=== PATIENT | female | born 1990 | race Caucasian/White ===

== ENCOUNTER → 2016-08-10 | Outpatient (CLI) | payer OTHER | LOC: KOH-I 13:30 | DX: M84.474A Pathological fracture, right foot, initial encounter for fracture (principal); S92.351A Displaced fracture of fifth metatarsal bone, right foot, initial encounter for closed fracture | CPT/HCPCS: 73700 ==

== ENCOUNTER 2020-05-20 10:44 | Emergency (ER) | payer BC ==
[~2020-05-20 10:44] MED LIST: BENTYL 20MG TAB20 MG PO; COLACE 100MG C100 MG PO; CREON DR 36,001 EACH PO; IBUPROFEN600 MG PO; LORTAB 5-325 M1 EACH PO; NORCO 5-325 TA1 EACH PO; OMNICEF 300 MG300 MG PO; PHENERGAN 25 MG25 M1 PO; PRENATAL VITAM1 EAC5 PO; PYRIDIUM200 MG PO
[2020-05-20] MEDS ORDERED: ATIVAN1 MG PO (13:07)
== END 2020-05-20 13:38 | disposition home or self-care (01) ==
LOC: ER1 10:44
DX: F43.0 Acute stress reaction (principal); G47.00 Insomnia, unspecified; R06.02 Shortness of breath; J45.909 Unspecified asthma, uncomplicated; Z87.19 Personal history of other diseases of the digestive system; Z88.0 Allergy status to penicillin; Z88.5 Allergy status to narcotic agent; Z91.041 Radiographic dye allergy status
CPT/HCPCS: 70450; 73502; 96374; 96375; 96376; 99285; J1885; J2060

== ENCOUNTER → 2021-05-19 | Outpatient (CLI) | payer BC ==
[~2021-05-19] MED LIST changes: +ATIVAN1 MG PO; +CYCLOBENZAPRINE5 MG PO; +METHYLPREDNISOLO4 MG PO; +PROVENTIL HFA6.7 GM PO; +ROXICODONE5 MG PO
[2021-05-19 13:20] LABS: HEMOGLOBIN 14.7 gm/dl (12.3-15.3); RED BLOOD COUNT 5.03 M/UL (4.00-5.10); WHITE BLOOD COUNT 6.4 K/UL (4.5-11.0)
[2021-05-19 13:45] LABS: BUN/CREATININE RATIO 16 (0-10)
== END ==
LOC: OPSV2 12:23 → EDSTATUS 12:30 → OPSV2 12:30
PROVIDERS: Orthopaedic Surgery
DX: Z01.818 Encounter for other preprocedural examination (principal); M51.16 Intervertebral disc disorders with radiculopathy, lumbar region; I51.7 Cardiomegaly
CPT/HCPCS: 36415; 80048; 84703; 85027; 86850; 86900; 86901; 93005

== ENCOUNTER → 2021-05-20 | Day surgery (SDC) | payer BC | END | disposition home or self-care (01) | LOC: OR 05:31 | DX: M51.16 Intervertebral disc disorders with radiculopathy, lumbar region (principal); K21.9 Gastro-esophageal reflux disease without esophagitis; K58.9 Irritable bowel syndrome, unspecified; Z88.5 Allergy status to narcotic agent; M41.9 Scoliosis, unspecified; Z88.0 Allergy status to penicillin; Z91.041 Radiographic dye allergy status; Z20.822 Contact with and (suspected) exposure to COVID-19 | CPT/HCPCS: 72100; 76000; C1781; J0690; J1040; J1100; J1170; J2001; J2250; J2405; J2550; J2704; J3010; J3370; J7050; J7120 ==

== ENCOUNTER 2021-08-04 13:13 | Emergency (ER) | payer BC ==
[2021-08-04 15:35] LABS: HEMOGLOBIN 13.2 gm/dl (12.3-15.3); RED BLOOD COUNT 4.6 M/UL (4.00-5.10); WHITE BLOOD COUNT 5.3 K/UL (4.5-11.0)
[2021-08-04 16:21] LABS: BUN/CREATININE RATIO 25 (0-10)
[2021-08-04] MEDS ORDERED: OMNICEF 300 MG300 MG PO (18:33)
== END 2021-08-04 19:28 | disposition home or self-care (01) ==
LOC: ER1 13:13
PROVIDERS: Emergency Medicine
DX: N30.90 Cystitis, unspecified without hematuria (principal); Z88.0 Allergy status to penicillin
CPT/HCPCS: 72131; 80053; 81001; 83690; 84703; 85025; 85652; 86140; 96374; 96375; 99284; J0696; J1170; J1885; J2405; J7030

== ENCOUNTER 2021-08-05 11:02 | Inpatient (IN) | payer BC ==
[~2021-08-05] VITALS: Ht 167.6 cm; Wt 77.1 kg
[2021-08-05 12:42] LABS: HEMOGLOBIN 12.3 gm/dl (12.3-15.3); RED BLOOD COUNT 4.28 M/UL (4.00-5.10); WHITE BLOOD COUNT 2.6 K/UL (4.5-11.0)
[2021-08-05 13:12] LABS: BUN/CREATININE RATIO 17 (0-10)
[2021-08-06 03:35] LABS: RED BLOOD COUNT 4.28 M/UL (4.00-5.10)
[2021-08-06 04:34] LABS: BUN/CREATININE RATIO 12 (0-10)
[2021-08-07 03:14] LABS: HEMOGLOBIN 12.3 gm/dl (12.3-15.3); RED BLOOD COUNT 4.33 M/UL (4.00-5.10)
[2021-08-07 03:42] LABS: BUN/CREATININE RATIO 12 (0-10)
[2021-08-08 04:48] LABS: HEMOGLOBIN 10.8 gm/dl (12.3-15.3); WHITE BLOOD COUNT 5.8 K/UL (4.5-11.0)
[2021-08-08 04:53] LABS: RED BLOOD COUNT 3.76 M/UL (4.00-5.10)
[2021-08-08 05:45] LABS: BUN/CREATININE RATIO 13 (0-10)
[2021-08-09 04:33] LABS: HEMOGLOBIN 11.3 gm/dl (12.3-15.3); RED BLOOD COUNT 3.93 M/UL (4.00-5.10); WHITE BLOOD COUNT 5.4 K/UL (4.5-11.0)
[2021-08-09 04:47] LABS: BUN/CREATININE RATIO 8 (0-10)
[2021-08-10 04:14] LABS: HEMOGLOBIN 11.2 gm/dl (12.3-15.3); RED BLOOD COUNT 3.99 M/UL (4.00-5.10)
[2021-08-10 04:25] LABS: BUN/CREATININE RATIO 9 (0-10)
[2021-08-11 06:13] LABS: HEMOGLOBIN 11.1 gm/dl (12.3-15.3); RED BLOOD COUNT 3.96 M/UL (4.00-5.10); WHITE BLOOD COUNT 4.8 K/UL (4.5-11.0)
[2021-08-11 06:53] LABS: BUN/CREATININE RATIO 18 (0-10)
--- NOTE | 2021-08-11 12:16 | NUR ---
WHILE ADMINISTERING PATIENTS LOVENOX INJECTION PATIENT YELLED AT NURSE AND CURSED AT NURSE. I ASKED THE PATIENT IF THERE WAS ANYTHING ELSE I COULD DO FOR HER AND FOR HER TO LET ME KNOW IF SHE NEEDED ANYTHING. PATIENT VERBALIZED UNDERSTANDING.
[2021-08-12 04:47] LABS: BUN/CREATININE RATIO 16 (0-10); HEMOGLOBIN 10.1 gm/dl (12.3-15.3); RED BLOOD COUNT 3.65 M/UL (4.00-5.10); WHITE BLOOD COUNT 4.3 K/UL (4.5-11.0)
[2021-08-13 10:21] LABS: HEMOGLOBIN 10.8 gm/dl (12.3-15.3); RED BLOOD COUNT 3.86 M/UL (4.00-5.10); WHITE BLOOD COUNT 3.8 K/UL (4.5-11.0)
[2021-08-13 10:34] LABS: BUN/CREATININE RATIO 14 (0-10)
--- NOTE | 2021-08-13 14:54 | NUR ---
PATIENT ORDERED SOAP SUDS ENEMA BY . ATTEMPTED TO ADMINISTER ENEMA TO PATIENT X2 BUT PATIENT STATES SHE IS IN TOO MUCH PAIN. NEXT PAIN MED DOSE IS 1550. ADVISED PATIENT WE WILL DO ENEMA AFTER NEXT DOSE OF PAIN MEDS. PATIENT VERBALIZED UNDERSTANDING. WILL CONTINUE TO ATTEMPT TO ADMINISTER ENEMA PER ORDER.
--- NOTE | 2021-08-13 17:43 | NUR ---
LARGE VOLUME SOAP SUDS ENEMA ADMINISTERED. PATIENT TOLERATED WELL. SMALL BM NOTED. NO DISTRESS NOTED. WCTM.
[2021-08-14 17:13] LABS: 6-ACETYLMORPHINE Negative (.); CODEINE Negative (.); DIHYDROCODEINE Negative (.); HYDROCODONE Negative (.); HYDROMORPHONE 2.7 ng/mL (.); MORPHINE Negative (.); OPIATE CONFIRMATION Positive (.); OXYCODONE Negative (.); OXYCODONES CONFIRMATION Negative (.); OXYMORPHONE Negative (.)
--- NOTE | 2021-08-14 18:26 | NUR ---
NOTIFIED DR CONTEH OF PATIENT COMPLAINTS WITH DIZZINESS, INCREASED PAIN, HEART PALPITAIONS. TELE READINGS OF [facility]CS. VITAL SIGNS WITHIN NORMAL LIMITS. MD NOTIFIED OF CARDIOLOGY ORDERS FOR TOPROL AND PATIENT RECEIVING MEDICATION ALREADY. NEW ORDERS NOTED.
[2021-08-15 10:31] LABS: HEMOGLOBIN 11.7 gm/dl (12.3-15.3); RED BLOOD COUNT 4.16 M/UL (4.00-5.10); WHITE BLOOD COUNT 4.5 K/UL (4.5-11.0)
[2021-08-15 10:49] LABS: BUN/CREATININE RATIO 10 (0-10)
--- NOTE | 2021-08-15 15:45 | NUR ---
1534- RECEIVED CALL FROM DR. RAMIREZ WITH NEW ORDERS. NEW ORDER TO START OXYCONTIN 20MG PO BID AND START NOW AND CHANGE DIALUDID TO 0.5MG Q3 HOURS PRN.
[2021-08-16 10:10] LABS: HEMOGLOBIN 11.3 gm/dl (12.3-15.3); RED BLOOD COUNT 4.01 M/UL (4.00-5.10); WHITE BLOOD COUNT 4.3 K/UL (4.5-11.0)
[2021-08-16 10:51] LABS: BUN/CREATININE RATIO 13 (0-10)
--- NOTE | 2021-08-16 14:49 | NUR ---
patient persistent to get her iv dilaudid medicine. informed to wait r/t oxy was just given to her but refuse.
[2021-08-17 07:08] LABS: HEMOGLOBIN 11.6 gm/dl (12.3-15.3); RED BLOOD COUNT 4.12 M/UL (4.00-5.10); WHITE BLOOD COUNT 3.9 K/UL (4.5-11.0)
[2021-08-17 07:35] LABS: BUN/CREATININE RATIO 9 (0-10)
--- NOTE | 2021-08-17 20:04 | NUR ---
DURING BEDSIDE SHIFT REPORT DR. CONTEH AND KATIE ARE IN THE PATIENT'S ROOM. SHE IS SCREAMING THAT SOMEBODY HAS TO DO SOMETHING WITH THE PAIN!!!!! DR. CHOI'S WENT TO WRITE ORDERS AND KATIE IS AWAITING THE MRI RESULTS. PT CALLED OUT FOR SOMETHING FOR PAIN. KIMBERLY GAVE HER O.5 DILAUDID AT 1721 AND OXYCONTIN 20MG AT 1830. I WENT BACK TO THE DOORWAY AND SAID, "KATIE IS WAITING ON THE MRI RESULTS." THE PATIENT PUT HER HAD TO HER HEAD AND SAID I DON'T WANT YOU, I WON'T CALL OUT AGAIN, JUST LEAVE MY ROOM. THE PATIENT CALLED OUT AND SAID SHE WANTED KATIE AND A PRINCIPAL SOFTWARE ENGINEER IN HER ROOM NOW! SHE THEN CALLED BACK OUT AND ASK FOR HER AMA PAPERS. I TOLD KATIE AND DR. CONTEH THAT I HAD BEEN FIRED BY THE PT AND SHE WANTS TO SPEAK TO WATER/WASTEWATER PROJECT MANAGER AND KATIE AND THAT THE PATIENT ASK FOR HER AMA PAPERS. SHERRI CAME AND SPOKE WITH THE PATIENT, WHILE I PULLED UP THE 15MG TORADOL ONE TIME THAT ORDERED. SHERRI GAVE IT TO THE PATIENT. I THEN SCANNED OFF HER 12.5 PHENERGAN, GAVE REPORT TO ERASMO WHO WILL NOW BE THE PATIENT'S NURSE.
[2021-08-18 08:50] LABS: HEMOGLOBIN 10.9 gm/dl (12.3-15.3); RED BLOOD COUNT 3.88 M/UL (4.00-5.10); WHITE BLOOD COUNT 3.6 K/UL (4.5-11.0)
[2021-08-18 09:39] LABS: BUN/CREATININE RATIO 12 (0-10)
[2021-08-18] MEDS ORDERED: METOPROLOL SUCC25 MG PO (11:41)
[2021-08-18] MEDS ORDERED: CELECOXIB200 MG PO (11:41)
[2021-08-18] MEDS ORDERED: PROTONIX40 MG PO (11:41)
[2021-08-18] MEDS ORDERED: daptomycin (11:43)
--- NOTE | 2021-08-18 17:08 | NUR ---
this morning received report from pm nurse that patient pain medications has been changed. patient continue to ask pain medications as ordered with pain not completely controlled. dr. vega and dr. tai aware of this.
--- NOTE | 2021-08-18 18:20 | NUR ---
report given to icu nurse
[2021-08-19 05:40] LABS: HEMOGLOBIN 9.7 gm/dl (12.3-15.3)
[2021-08-19 05:41] LABS: RED BLOOD COUNT 3.44 M/UL (4.00-5.10); WHITE BLOOD COUNT 7.6 K/UL (4.5-11.0)
[2021-08-19 05:54] LABS: BUN/CREATININE RATIO 11 (0-10)
--- NOTE | 2021-08-19 14:56 | NUR ---
PT TRANSFERRED TO U [id number] PER MD ORDER. REPORT CALLED TO [facility]. VITALS WITHIN NORMAL LIMITS.
[2021-08-20 02:16] LABS: HEMOGLOBIN 9.5 gm/dl (12.3-15.3); RED BLOOD COUNT 3.32 M/UL (4.00-5.10); WHITE BLOOD COUNT 6.4 K/UL (4.5-11.0)
[2021-08-20 02:28] LABS: BUN/CREATININE RATIO 12 (0-10)
[2021-08-20] MEDS ORDERED: ZOFRAN 4 MG TAB4 MG PO (08:26)
[2021-08-20] MEDS ORDERED: METOPROLOL SUCC25 MG PO (08:30)
--- NOTE | 2021-08-20 10:00 | NUR ---
PT WALKING AROUND ROOM AND IN BATHROOM APPLYING MAKEUP AND FIXING HER HAIR. SHE ASKS TO GO OUTSIDE AND TEACHING DONE ABOUT BACK PRECAUTIONS AND RISKS FOR GOING OUTSIDE. PT AGREES TO STAY AND GET HER ANTIBIOTIC, AND REMAIN ON TELE. HER HR IS 110
[2021-08-20] MEDS ORDERED: COLACE100 MG PO (10:31)
[2021-08-20] MEDS ORDERED: VISTARIL25 MG PO (10:31)
--- NOTE | 2021-08-20 16:02 | NUR ---
REPORT CALLED TO ALEE FOR BED 5120.
[2021-08-21 02:47] LABS: HEMOGLOBIN 9.9 gm/dl (12.3-15.3); RED BLOOD COUNT 3.52 M/UL (4.00-5.10)
[2021-08-21 03:35] LABS: BUN/CREATININE RATIO 6 (0-10)
== END 2021-08-21 10:56 | disposition home health service (06) | DRG 856 ==
LOC: ER1 11:02 → M/S 14:35 → CDU 14:35 → M/S 16:20 → CCU 08-18 18:01 → PROG CARE 08-19 14:37 → M/S 08-20 16:36
PROVIDERS: Emergency Medicine; Internal Medicine; Orthopaedic Surgery; Physician Assistant; ADMIT Internal Medicine
PROC: 02HV33Z Insertion of Infusion Device into Superior Vena Cava, Percutaneous Approach (ICD-10-PCS; 2021-08-05)
PROC: B548ZZA Ultrasonography of Superior Vena Cava, Guidance (ICD-10-PCS; 2021-08-05)
PROC: B24BZZZ Ultrasonography of Heart with Aorta (ICD-10-PCS; 2021-08-05)
PROC: 0SB20ZZ Excision of Lumbar Vertebral Disc, Open Approach (ICD-10-PCS; 2021-08-06)
PROC: 01NB0ZZ Release Lumbar Nerve, Open Approach (ICD-10-PCS; 2021-08-18)
PROC: 0QB23ZZ Excision of Right Pelvic Bone, Percutaneous Approach (ICD-10-PCS; 2021-08-18)
PROC: 0QB00ZZ Excision of Lumbar Vertebra, Open Approach (ICD-10-PCS; 2021-08-18)
PROC: 4A11X4G Monitoring of Peripheral Nervous Electrical Activity, Intraoperative, External Approach (ICD-10-PCS; 2021-08-18)
PROC: 0SG0071 Fusion of Lumbar Vertebral Joint with Autologous Tissue Substitute, Posterior Approach, Posterior Column, Open Approach (ICD-10-PCS; principal; 2021-08-18 14:30)
DX: T81.41XA Infection following a procedure, superficial incisional surgical site, initial encounter (principal); G06.1 Intraspinal abscess and granuloma; M46.26 Osteomyelitis of vertebra, lumbar region; K86.1 Other chronic pancreatitis; I47.2 Ventricular tachycardia; I96 Gangrene, not elsewhere classified; Z20.822 Contact with and (suspected) exposure to COVID-19; M46.56 Other infective spondylopathies, lumbar region; Y83.9 Surgical procedure, unspecified as the cause of abnormal reaction of the patient, or of later complication, without mention of misadventure at the time of the procedure; G89.29 Other chronic pain; M46.46 Discitis, unspecified, lumbar region; K59.00 Constipation, unspecified; B95.62 Methicillin resistant Staphylococcus aureus infection as the cause of diseases classified elsewhere; I08.1 Rheumatic disorders of both mitral and tricuspid valves; F41.9 Anxiety disorder, unspecified; F32.A Depression, unspecified; R74.01 Elevation of levels of liver transaminase levels; D72.819 Decreased white blood cell count, unspecified; R11.0 Nausea; N20.0 Calculus of kidney; Z87.19 Personal history of other diseases of the digestive system; Z90.49 Acquired absence of other specified parts of digestive tract; Z98.890 Other specified postprocedural states; Z88.5 Allergy status to narcotic agent; Z88.0 Allergy status to penicillin; Z88.8 Allergy status to other drugs, medicaments and biological substances; Z91.041 Radiographic dye allergy status; Z82.49 Family history of ischemic heart disease and other diseases of the circulatory system; Z83.3 Family history of diabetes mellitus; Z87.442 Personal history of urinary calculi; Z82.3 Family history of stroke
CPT/HCPCS: ECHO; 36415; 71045; 72100; 72110; 72148; 72158; 72195; 74018; 76000; 80048; 80053; 80202; 80307; 81001; 82550; 82553; 82962; 83690; 83735; 84100; 84132; 84484; 84702; 84703; 85025; 85027; 85610; 85652; 85730; 86140; 86850; 86900; 86901; 87040; 87070; 87077; 87186; 87205; 93005; 93306; 94640; 94664; 94760; 96374; 96376; 97110; 97116; 97116-GP-CQ; 97161; 97164; 97166; 97530; 97530-GP-CQ; 97535; 99284; A9577; C1713; C1751; C9113; G0378; J0690; J0878; J1100; J1170; J1200; J1335; J1650; J1885; J2001; J2250; J2370; J2405; J2550; J2704; J2710; J2765; J3010; J3370; J3475; J7030; J7040; J7070; J7120; P9045; U0002

== ENCOUNTER 2021-10-16 19:52 | Emergency (ER) | payer BC ==
[~2021-10-16 19:52] MED LIST changes: +CELECOXIB200 MG PO; +COLACE100 MG PO; +METOPROLOL SUCC25 MG PO; +PROTONIX40 MG PO; +VISTARIL25 MG PO; +ZOFRAN 4 MG TAB4 MG PO; +daptomycin
[2021-10-16 20:30] LABS: HEMOGLOBIN 10.6 gm/dl (12.3-15.3); RED BLOOD COUNT 4.11 M/UL (4.00-5.10); WHITE BLOOD COUNT 5.8 K/UL (4.5-11.0)
[2021-10-16 21:05] LABS: BUN/CREATININE RATIO 20 (0-10)
== END 2021-10-16 23:45 | disposition home or self-care (01) ==
LOC: ER1 19:52
PROVIDERS: Emergency Medicine
DX: Z45.2 Encounter for adjustment and management of vascular access device (principal); R07.9 Chest pain, unspecified; M46.40 Discitis, unspecified, site unspecified; M86.9 Osteomyelitis, unspecified; Z90.49 Acquired absence of other specified parts of digestive tract; Z88.0 Allergy status to penicillin; Z91.041 Radiographic dye allergy status; Z88.5 Allergy status to narcotic agent
CPT/HCPCS: 71045; 80053; 82550; 82553; 84484; 85025; 93005; 96374; 96375; 99285; J0878; J2405